=== PATIENT | female | born 1950 | race Hispanic/Latino ===

== ENCOUNTER → 2018-01-21 | Outpatient (CLI) | payer OTHER | END | disposition home or self-care (01) | LOC: RAH 14:56 | PROVIDERS: ATTEND Family Medicine | DX: R22.2 Localized swelling, mass and lump, trunk (principal) | CPT/HCPCS: 76604 ==

== ENCOUNTER 2019-07-21 17:09 | Emergency (ER) | payer OTHER ==
[~2019-07-21 17:09] MED LIST: ASPI-1197 PO; BACL10TA PO; ESOM20CA39 PO; LINA145C PO; METF-526 PO; SIMV10TA97 PO; TRAZ-185 PO
[2019-07-21 17:36] LABS: BASOPHILS % (AUTO) 1.1 % (0.0-5.0); EOSINOPHILS % (AUTO) 1.2 % (0.0-8.0); HEMATOCRIT 31.5 % (36-48); MEAN CORPUSCULAR HEMOGLOBIN 27.4 pg (27.0-33.0); MEAN CORPUSCULAR VOLUME 82.9 fL (79-99); MONOCYTES % (AUTO) 5.2 % (3.0-13.0); NEUTROPHILS % (AUTO) 48.1 % (40.0-77.0); PLATELET COUNT (AUTO) 409 K/uL (130-400); RED CELL DISTRIBUTION WIDTH 14.6 % (11.0-15.5); WHITE BLOOD COUNT (AUTO) 9.1 K/uL (4.8-10.8)
[2019-07-21] MEDS ORDERED: IOHEXOL 350 MG/ML 100ML INFUS..BTL IV ONE (17:56)
[2019-07-21] MEDS ORDERED: ONDANSETRON HCL 4 MG/2 ML VIAL ONE (18:02)
[2019-07-21] MEDS ORDERED: MORPHINE SULFATE 4 MG/1ML SYG ONE (18:03)
[2019-07-21 18:24] LABS: CARBON DIOXIDE 21 mmol/L (21-32); CHLORIDE 100 mmol/L (101-111); GLOMERULAR FILTR. RATE CALC 59 mL/min (>60); GLUCOSE,RANDOM 202 mg/dL (70-105); POTASSIUM 3.5 mmol/L (3.5-5.1); SODIUM SERUM 137 mmol/L (136-145); UREA NITROGEN, BLOOD 10 mg/dL (7-18)
[2019-07-21 18:28] LABS: ALANINE AMINOTRANSFERASE 15 U/L (12-78); ALBUMIN 3.7 g/dL (3.5-5.0); ALCOHOL, BLOOD < 3 mg/dL (0-10); ASPARTATE AMINOTRANSFERASE 10 U/L (10-37); BILIRUBIN,TOTAL 0.2 mg/dL (0.2-1.0); LIPASE 121 U/L (114-286); TOTAL PROTEIN, SERUM 8.2 g/dL (6.0-8.3)
[2019-07-21 19:03] LABS: APPEARANCE,URINE Clear (CLEAR); BILIRUBIN,URINE Negative (NEGATIVE); COLOR,URINE Yellow (YELLOW); GLUCOSE, URINE (UA) Negative (NEGATIVE); KETONES,URINE Negative (NEGATIVE); LEUKOCYTE ESTERASE ,URINE Negative (NEGATIVE); NITRATE,URINE Negative (NEGATIVE); OCCULT BLOOD,URINE Negative (NEGATIVE); PH,URINE 7.5 (5.0-8.0); PROTEIN,URINE Negative (NEGATIVE); UROBILINOGEN,URINE 0.2 mg/dL (0.2-1.0)
[2019-07-21 19:11] LABS: AMPHET/METH SCREEN,URINE NEGATIVE (NEGATIVE); BARBITURATE SCREEN, URINE NEGATIVE (NEGATIVE); BENZODIAZEPINES SCREEN,URINE NEGATIVE (NEGATIVE); CANNABINOID SCREEN,URINE NEGATIVE (NEGATIVE); COCAINE SCREEN,URINE NEGATIVE (NEGATIVE); OPIATE SCREEN,URINE NEGATIVE (NEGATIVE); PHENCYCLIDINE SCREEN,URINE NEGATIVE (NEGATIVE)
== END 2019-07-21 19:33 | disposition home or self-care (01) ==
LOC: EDH 17:09
DX: S30.1XXA Contusion of abdominal wall, initial encounter (principal); R07.89 Other chest pain; E11.9 Type 2 diabetes mellitus without complications; Z90.49 Acquired absence of other specified parts of digestive tract; Z90.710 Acquired absence of both cervix and uterus; V89.2XXA Person injured in unspecified motor-vehicle accident, traffic, initial encounter; Y93.89 Activity, other specified; Y92.488 Other paved roadways as the place of occurrence of the external cause; Y99.8 Other external cause status
CPT/HCPCS: 36415; 70450; 71260; 72125; 74177; 80053; 80305; 81003; 83690; 85025; 96374; 96375; 99285; G0480; J2270; J2405; Q9967

== ENCOUNTER → 2019-08-15 | Outpatient (CLI) | payer OTHER ==
[~2019-08-15] VITALS: Ht 139.7 cm; Wt 65.3 kg
[~2019-08-15] MED LIST changes: +REGADENOSON 0.4 MG/5 ML PF SYG IVP SCH
== END | disposition home or self-care (01) ==
LOC: SHCH 08:01
PROVIDERS: ATTEND Internal Medicine Cardiovascular Disease
DX: I25.10 Atherosclerotic heart disease of native coronary artery without angina pectoris (principal); E11.9 Type 2 diabetes mellitus without complications; Z90.710 Acquired absence of both cervix and uterus; Z90.49 Acquired absence of other specified parts of digestive tract
CPT/HCPCS: 78452; 93017; 96374; A9500 ×2; J2785

== ENCOUNTER 2019-09-25 20:14 | Observation (INO) | payer OTHER ==
[~2019-09-25] VITALS: Ht 139.7 cm; Wt 63.9 kg
[~2019-09-25 20:14] MED LIST changes: -REGADENOSON 0.4 MG/5 ML PF SYG IVP SCH
[2019-09-25] MEDS ORDERED: ASPIRIN 325 MG TABLET ONE (20:42)
[2019-09-25 21:06] LABS: BASOPHILS % (AUTO) 1.2 % (0.0-5.0); EOSINOPHILS % (AUTO) 2.4 % (0.0-8.0); HEMATOCRIT 30.6 % (36-48); LYMPHOCYTES % (AUTO) 39.6 % (21.0-51.0); MEAN CORPUSCULAR HEMOGLOBIN 27.4 pg (27.0-33.0); MEAN CORPUSCULAR HGB CONC 32.7 g/dL (32.0-36.0); MEAN CORPUSCULAR VOLUME 83.8 fL (79-99); MONOCYTES % (AUTO) 6.1 % (3.0-13.0); NEUTROPHILS % (AUTO) 50.5 % (40.0-77.0); PLATELET COUNT (AUTO) 391 K/uL (130-400); RED BLOOD CELL COUNT(AUTO) 3.65 MIL/uL (4.00-5.50); RED CELL DISTRIBUTION WIDTH 15.1 % (11.0-15.5); WHITE BLOOD COUNT (AUTO) 8.4 K/uL (4.8-10.8)
[2019-09-25 21:18] LABS: CREATININE 1.2 mg/dL (0.5-1.5); POTASSIUM 4.2 mmol/L (3.5-5.1)
[2019-09-25 21:23] LABS: ALBUMIN 3.7 g/dL (3.5-5.0); BILIRUBIN,TOTAL 0.2 mg/dL (0.2-1.0); INR 0.9 (0.85-1.15); PROTHROMBIN TIME 9.8 SEC (9.6-11.6); TOTAL PROTEIN, SERUM 7.2 g/dL (6.0-8.3)
[2019-09-26] VITALS (7 sets, daily range): BP systolic 114–124; BP diastolic 48–68
[2019-09-26 03:51] LABS: CREATINE KINASE, TOTAL 64 U/L (21-232); MYOGLOBIN 13 ng/mL (10-92); TROPONIN I < 0.04 ng/mL (0.00-0.06)
[2019-09-26] MEDS ORDERED: METOPROLOL TARTRATE 50 MG TAB ONE (08:34)
[2019-09-26] MEDS ORDERED: ASPIRIN 325 MG TABLET ONE (08:34)
[2019-09-26] MEDS ORDERED: PANTOPRAZOLE SODIUM 40 MG TABLET.DR ONE (08:34)
[2019-09-26] MEDS ORDERED: NITROGLYCERIN 1GM/1 INCH PACKET TD ONE (08:34)
[2019-09-26 09:26] LABS: CREATINE KINASE, TOTAL 61 U/L (21-232); MYOGLOBIN 26 ng/mL (10-92); TROPONIN I < 0.04 ng/mL (0.00-0.06)
[2019-09-26] MEDS ORDERED: BIVALIRUDIN 250 MG/VIAL IV ONE (13:28)
[2019-09-26] MEDS ORDERED: IOHEXOL 350 MG/ML 100ML INFUS..BTL IV ONE (13:28)
[2019-09-26] MEDS ORDERED: NITROGLYCERIN 2 MG/VIAL VIAL IV ONE (13:28)
[2019-09-26] MEDS ORDERED: LIDOCAINE HCL 2% 20ML ONE (13:28)
[2019-09-26] MEDS ORDERED: IOHEXOL-350 50ML VIAL IV ONE (13:28)
[2019-09-26] MEDS ORDERED: IOHEXOL-350 75 ML VIAL IV ONE (13:28)
[2019-09-26] MEDS ORDERED: MIDAZOLAM HCL 1 MG/ML 2ML VIAL ONE (14:27)
[2019-09-26] MEDS ORDERED: FENTANYL CITRATE PF 50 MCG/1 ML 2ML VIAL ONE (14:39)
[2019-09-26] MEDS ORDERED: SODIUM CHLORIDE 0.9% 1000ML 1,000 ML IV SCH (15:04)
--- NOTE | 2019-09-26 16:05 | NUR ---
CALL TO DTR FOR KIMMIE BOWER, DAUGHTER PROVIDED INFO ON PATIENT. FACE SHEET UPDATED. PT LIVES WITH PARTNER PAT [facility], WHO WILL PROVIDE TRANSPORT ON DISCHARGE. PATIENT IS ACTIVE, INDEPENDENT, DRIVES, IS EMPLOYED, NO SERVICES OR DME, S/P [facility] TODAY WITH DISCHARGE EXPECTED. DCP HOME Addendum: 09/26/19 at 1610 by JEFF JUSTIN RN CM Amended: Links added.
[2019-09-26] MEDS ORDERED: METO-408 PO (17:25)
[2019-09-26] MEDS ORDERED: ROSU20TA31 PO (17:25)
[2019-09-26] MEDS ORDERED: PANT40TA25 PO (17:25)
--- NOTE | 2019-09-26 19:51 | NUR ---
Patient AOX3, stable, good, ambulatory. LHC- Right groin intact no bleeding noted. Removed IV/Telepack. Discharge instructions provided and work excuse. Patient taken to lobby via wheel chair by Sruthi PCP. No issues noted.,
== END 2019-09-26 20:00 | disposition home or self-care (01) ==
LOC: EDH 20:14 → INTOOBSV 23:03 → EDHIP 23:03 → 4CH 09-26 16:07
PROVIDERS: ADMIT Family Medicine; ATTEND Family Medicine
DX: R07.89 Other chest pain (principal); I25.10 Atherosclerotic heart disease of native coronary artery without angina pectoris; K21.9 Gastro-esophageal reflux disease without esophagitis; E78.5 Hyperlipidemia, unspecified; E11.9 Type 2 diabetes mellitus without complications; G25.81 Restless legs syndrome; K57.90 Diverticulosis of intestine, part unspecified, without perforation or abscess without bleeding; Z90.710 Acquired absence of both cervix and uterus; Z79.899 Other long term (current) drug therapy; Z79.82 Long term (current) use of aspirin
CPT/HCPCS: 36415 ×2; 71045; 80053; 82550 ×3; 82948 ×2; 83874 ×2; 84484 ×3; 85025; 85610; 85730; 93005; 93458; 99285; C1760; C1894 ×2; G0378 ×2; J1644; J2250; J3010; J3490 ×2; Q9965; Q9967 ×2; 99156; 99157; J0583

== ENCOUNTER 2022-07-01 17:00 | Emergency (ER) | payer OTHER ==
[~2022-07-01] VITALS: Ht 139.7 cm; Wt 60.8 kg
[~2022-07-01 17:00] MED LIST changes: -ESOM20CA39 PO; +METO-408 PO; +PANT40TA54 PO; +ROSU20TA31 PO; -SIMV10TA97 PO
[2022-07-01 17:45] LABS: BASOPHILS % (AUTO) 1.3 % (0.0-5.0); HEMATOCRIT 34.2 % (36-48); MEAN CORPUSCULAR HEMOGLOBIN 27.9 pg (27.0-33.0); MEAN CORPUSCULAR HGB CONC 32.7 g/dL (32.0-36.0); MEAN CORPUSCULAR VOLUME 85.1 fL (79-99); NEUTROPHILS % (AUTO) 41.4 % (40.0-77.0); PLATELET COUNT (AUTO) 385 K/uL (130-400); RED BLOOD CELL COUNT(AUTO) 4.02 MIL/uL (4.00-5.50); RED CELL DISTRIBUTION WIDTH 14.7 % (11.0-15.5); WHITE BLOOD COUNT (AUTO) 7.8 K/uL (4.8-10.8)
[2022-07-01 17:57] LABS: CREATININE 0.8 mg/dL (0.5-1.5); POTASSIUM 3.4 mmol/L (3.5-5.1)
[2022-07-01 17:58] LABS: INR 0.93 (0.85-1.15); PROTHROMBIN TIME 9.8 SEC (9.6-11.6)
[2022-07-01 17:59] LABS: PARTIAL THROMBOPLASTIN TIME 25.4 SEC (26.3-35.5)
[2022-07-01 18:00] LABS: APPEARANCE,URINE CLEAR (CLEAR); BILIRUBIN,URINE NEGATIVE (NEGATIVE); COLOR,URINE COLORLESS (YELLOW); GLUCOSE, URINE (UA) NEGATIVE (NEGATIVE); KETONES,URINE NEGATIVE (NEGATIVE); LEUKOCYTE ESTERASE ,URINE 25 Leu/uL (NEGATIVE); NITRATE,URINE NEGATIVE (NEGATIVE); OCCULT BLOOD,URINE NEGATIVE (NEGATIVE); PH,URINE 5.5 (5.0-8.0); PROTEIN,URINE NEGATIVE (NEGATIVE); UROBILINOGEN,URINE 0.2 mg/dL (0.2-1.0)
[2022-07-01 18:02] LABS: ALBUMIN 4.1 g/dL (3.5-5.0); TOTAL PROTEIN, SERUM 8.2 g/dL (6.0-8.3)
[2022-07-01 18:06] LABS: BACTERIA,URINE RARE /HPF (None Seen); MUCUS,URINE RARE LPF (None Seen); SQUAMOUS EPITHELIAL CELL,UR RARE /HPF (0-2)
[2022-07-01] MEDS ORDERED: IOHEXOL-350 50ML VIAL IV ONE (18:46)
[2022-07-01 21:17] VITALS: BP 158/72
[2022-07-01] MEDS ORDERED: HYOS-14 PO (21:21)
[2022-07-01] MEDS ORDERED: SUCR1TAB28 PO (21:21)
== END 2022-07-01 22:17 | disposition home or self-care (01) ==
LOC: EDH 17:00
DX: R10.84 Generalized abdominal pain (principal); D64.9 Anemia, unspecified; E11.9 Type 2 diabetes mellitus without complications; E78.00 Pure hypercholesterolemia, unspecified; K21.9 Gastro-esophageal reflux disease without esophagitis; K57.30 Diverticulosis of large intestine without perforation or abscess without bleeding; Z79.82 Long term (current) use of aspirin; Z79.84 Long term (current) use of oral hypoglycemic drugs; Z79.899 Other long term (current) drug therapy; Z90.49 Acquired absence of other specified parts of digestive tract
CPT/HCPCS: 99285; 74177; 82270; 84484; 80053; 83690; 85025; 85610; 85730; 81001; 36415; 93005; Q9967

== ENCOUNTER 2022-12-21 12:42 | Emergency (ER) | payer OTHER ==
[~2022-12-21] VITALS: Ht 139.7 cm; Wt 57.2 kg
[~2022-12-21 12:42] MED LIST changes: +AMOX1TAB15 PO; +HYOS-14 PO; +METFORMIN/GLYBURIDE PO; +PANT40TA55 PO; -ROSU20TA31 PO; +ROSU20TA73 PO; +SUCR1TAB28 PO
[2022-12-21 13:48] LABS: BASOPHILS # (AUTO) 0.09 K/uL (0.00-0.20); BASOPHILS % (AUTO) 0.8 % (0.0-5.0); EOSINOPHILS # (AUTO) 0.11 K/uL (0.00-0.70); HEMATOCRIT 32.5 % (36-48); IMMATURE GRANULOCYTE ABSOLUTE 0.05 K/uL (0-1); LYMPHOCYTES # (AUTO) 2.8 K/uL (1.0-4.8); LYMPHOCYTES % (AUTO) 26.2 % (21.0-51.0); MEAN CORPUSCULAR HEMOGLOBIN 27.8 pg (27.0-33.0); MEAN CORPUSCULAR HGB CONC 32.9 g/dL (32.0-36.0); MEAN CORPUSCULAR VOLUME 84.4 fL (79-99); MONOCYTES # (AUTO) 0.6 K/uL (0.1-1.0); MONOCYTES % (AUTO) 5.7 % (3.0-13.0); NEUTROPHILS % (AUTO) 65.8 % (40.0-77.0); PLATELET COUNT (AUTO) 438 K/uL (130-400); RED BLOOD CELL COUNT(AUTO) 3.85 MIL/uL (4.00-5.50); RED CELL DISTRIBUTION WIDTH 14.2 % (11.0-15.5); WHITE BLOOD COUNT (AUTO) 10.7 K/uL (4.8-10.8)
[2022-12-21 14:53] LABS: CREATININE 0.7 mg/dL (0.5-1.5)
[2022-12-21 14:58] LABS: ALBUMIN 3.6 g/dL (3.5-5.0); BILIRUBIN,TOTAL 0.2 mg/dL (0.2-1.0); TOTAL PROTEIN, SERUM 7.9 g/dL (6.0-8.3)
[2022-12-21 15:27] LABS: APPEARANCE,URINE CLEAR (CLEAR); BILIRUBIN,URINE NEGATIVE (NEGATIVE); COLOR,URINE LIGHT-YELLOW (YELLOW); GLUCOSE, URINE (UA) NEGATIVE (NEGATIVE); KETONES,URINE NEGATIVE (NEGATIVE); LEUKOCYTE ESTERASE ,URINE NEGATIVE Leu/uL (NEGATIVE); NITRATE,URINE NEGATIVE (NEGATIVE); OCCULT BLOOD,URINE NEGATIVE (NEGATIVE); PH,URINE 5.5 (5.0-8.0); PROTEIN,URINE NEGATIVE (NEGATIVE); UROBILINOGEN,URINE 0.2 mg/dL (0.2-1.0)
[2022-12-21 15:30] LABS: ADD UA MICROSCOPIC YES
[2022-12-21 15:32] LABS: BACTERIA,URINE RARE /HPF (None Seen); MUCUS,URINE RARE LPF (None Seen); RBC,URINE 0-1 /HPF (0-1); SQUAMOUS EPITHELIAL CELL,UR RARE /HPF (0-2)
[2022-12-21] MEDS ORDERED: CIPR-278 PO (15:59)
[2022-12-21] MEDS ORDERED: METR-172 PO (15:59)
[2022-12-21 16:38] VITALS: BP 134/81; PULSE 78; RESP 18; O2SAT 97
== END 2022-12-21 16:39 | disposition home or self-care (01) ==
LOC: EDH 12:42
DX: K57.30 Diverticulosis of large intestine without perforation or abscess without bleeding (principal); E11.9 Type 2 diabetes mellitus without complications; I10 Essential (primary) hypertension; Z79.82 Long term (current) use of aspirin; Z79.84 Long term (current) use of oral hypoglycemic drugs; Z79.899 Other long term (current) drug therapy; Z90.49 Acquired absence of other specified parts of digestive tract
CPT/HCPCS: 36415; 74176; 80053; 81001; 83690; 84484; 85025; 93005

== ENCOUNTER → 2023-02-16 | Outpatient (CLI) | payer OTHER ==
[~2023-02-16] MED LIST changes: +CIPR-278 PO; +METR-172 PO
== END | disposition home or self-care (01) ==
LOC: OIH 15:47
PROVIDERS: ATTEND Family Medicine
DX: M47.814 Spondylosis without myelopathy or radiculopathy, thoracic region (principal); R07.82 Intercostal pain; Z90.49 Acquired absence of other specified parts of digestive tract
CPT/HCPCS: 71101

== ENCOUNTER 2023-03-02 12:02 | Emergency (ER) | payer OTHER ==
[~2023-03-02] VITALS: Ht 139.7 cm; Wt 56.7 kg
[2023-03-02 14:27] LABS: APPEARANCE,URINE CLOUDY (CLEAR); BILIRUBIN,URINE NEGATIVE (NEGATIVE); COLOR,URINE LIGHT-YELLOW (YELLOW); GLUCOSE, URINE (UA) NEGATIVE (NEGATIVE); KETONES,URINE NEGATIVE (NEGATIVE); LEUKOCYTE ESTERASE ,URINE 500 Leu/uL (NEGATIVE); NITRATE,URINE NEGATIVE (NEGATIVE); OCCULT BLOOD,URINE NEGATIVE (NEGATIVE); PH,URINE 5.5 (5.0-8.0); PROTEIN,URINE NEGATIVE (NEGATIVE); UROBILINOGEN,URINE 0.2 mg/dL (0.2-1.0)
[2023-03-02 14:30] LABS: BASOPHILS % (AUTO) 1.2 % (0.0-5.0); EOSINOPHILS # (AUTO) 0.11 K/uL (0.00-0.70); EOSINOPHILS % (AUTO) 1.3 % (0.0-8.0); HEMATOCRIT 32.5 % (36-48); IMMATURE GRANULOCYTE ABSOLUTE 0.02 K/uL (0-1); LYMPHOCYTES # (AUTO) 3.1 K/uL (1.0-4.8); LYMPHOCYTES % (AUTO) 36.2 % (21.0-51.0); MEAN CORPUSCULAR HEMOGLOBIN 27.5 pg (27.0-33.0); MEAN CORPUSCULAR HGB CONC 31.7 g/dL (32.0-36.0); MEAN CORPUSCULAR VOLUME 86.9 fL (79-99); MONOCYTES # (AUTO) 0.5 K/uL (0.1-1.0); MONOCYTES % (AUTO) 6.3 % (3.0-13.0); NEUTROPHILS # (AUTO) 4.6 K/uL (1.8-7.7); NEUTROPHILS % (AUTO) 54.8 % (40.0-77.0); PLATELET COUNT (AUTO) 435 K/uL (130-400); RED BLOOD CELL COUNT(AUTO) 3.74 MIL/uL (4.00-5.50); RED CELL DISTRIBUTION WIDTH 14.2 % (11.0-15.5); WHITE BLOOD COUNT (AUTO) 8.5 K/uL (4.8-10.8)
[2023-03-02 14:32] LABS: ADD UA MICROSCOPIC YES
[2023-03-02 14:34] LABS: BACTERIA,URINE MOD /HPF (None Seen); MUCUS,URINE FEW LPF (None Seen); SQUAMOUS EPITHELIAL CELL,UR FEW /HPF (0-2); WBC,URINE TNTC /HPF (0-1)
[2023-03-02 14:38] LABS: CREATININE 0.6 mg/dL (0.5-1.5); POTASSIUM 4.2 mmol/L (3.5-5.1)
[2023-03-02 14:43] LABS: ALBUMIN 3.9 g/dL (3.5-5.0); BILIRUBIN,TOTAL 0.2 mg/dL (0.2-1.0); TOTAL PROTEIN, SERUM 8.2 g/dL (6.0-8.3)
[2023-03-02 15:12] VITALS: BP 148/75; PULSE 88; RESP 16; O2SAT 98
[2023-03-02] MEDS ORDERED: CEFTRIAXONE 1G VIAL IVPB ONE (16:00)
[2023-03-02] MEDS ORDERED: CEPH500B PO (16:06)
== END 2023-03-02 16:30 | disposition home or self-care (01) ==
LOC: EDH 12:02
DX: N39.0 Urinary tract infection, site not specified (principal); N93.9 Abnormal uterine and vaginal bleeding, unspecified; E11.9 Type 2 diabetes mellitus without complications; Z79.82 Long term (current) use of aspirin; Z79.84 Long term (current) use of oral hypoglycemic drugs; Z79.899 Other long term (current) drug therapy; Z90.49 Acquired absence of other specified parts of digestive tract; Z90.710 Acquired absence of both cervix and uterus
CPT/HCPCS: 99285; 96365; 76857; 80053; 85025; 87088; 81001; 36415; J0696

== ENCOUNTER → 2023-03-11 | Outpatient (CLI) | payer OTHER ==
[~2023-03-11] MED LIST changes: +CEPH500B PO; +IOHEXOL-350 50ML VIAL IV ONE
== END | disposition home or self-care (01) ==
LOC: RAH 08:39
PROVIDERS: ATTEND Family Medicine
DX: R82.90 Unspecified abnormal findings in urine (principal); N95.0 Postmenopausal bleeding; Z90.710 Acquired absence of both cervix and uterus
CPT/HCPCS: 76080; Q9967

== ENCOUNTER 2023-05-14 18:40 | Emergency (ER) | payer OTHER ==
[~2023-05-14] VITALS: Ht 139.7 cm; Wt 58.1 kg
[~2023-05-14 18:40] MED LIST changes: -IOHEXOL-350 50ML VIAL IV ONE
[2023-05-14 23:23] VITALS: BP 144/72; PULSE 80; RESP 16; O2SAT 99
== END 2023-05-14 23:24 | disposition home or self-care (01) ==
LOC: EDH 18:40
DX: N82.3 Fistula of vagina to large intestine (principal); E11.9 Type 2 diabetes mellitus without complications; Z79.82 Long term (current) use of aspirin; Z79.84 Long term (current) use of oral hypoglycemic drugs; Z79.899 Other long term (current) drug therapy; Z90.49 Acquired absence of other specified parts of digestive tract; Z90.710 Acquired absence of both cervix and uterus
CPT/HCPCS: 99281

== ENCOUNTER → 2023-05-21 | Outpatient (CLI) | payer OTHER ==
[~2023-05-21] MED LIST changes: +IOHEXOL-350 75 ML VIAL IV ONE
== END | disposition home or self-care (01) ==
LOC: RAH 08:54
PROVIDERS: ATTEND Internal Medicine Gastroenterology
DX: K57.30 Diverticulosis of large intestine without perforation or abscess without bleeding (principal); N82.3 Fistula of vagina to large intestine; Z90.49 Acquired absence of other specified parts of digestive tract
CPT/HCPCS: 74178; Q9967

== ENCOUNTER → 2023-12-06 | Outpatient (CLI) | payer OTHER ==
[~2023-12-06] MED LIST changes: +ALEN70TA80 PO; -AMOX1TAB15 PO; -ASPI-1197 PO; -CEPH500B PO; +CETI-89 PO; -CIPR-278 PO; -HYOS-14 PO; -IOHEXOL-350 75 ML VIAL IV ONE; -LINA145C PO; +METF-444 PO; -METF-526 PO; -METFORMIN/GLYBURIDE PO; -METO-408 PO; -METR-172 PO; -PANT40TA54 PO; +ROSU10TA22 PO; -ROSU20TA73 PO; -SUCR1TAB28 PO; -TRAZ-185 PO; +TRAZ-187 PO
== END | disposition home or self-care (01) ==
LOC: RAH 12:12
PROVIDERS: ATTEND Family Medicine
DX: M19.071 Primary osteoarthritis, right ankle and foot (principal); M79.674 Pain in right toe(s)
CPT/HCPCS: 73660

== ENCOUNTER → 2024-02-14 | Outpatient (CLI) | payer OTHER | END | disposition home or self-care (01) | LOC: RAH 16:41 | PROVIDERS: ATTEND Family Medicine | DX: R05.1 Acute cough (principal); M47.815 Spondylosis without myelopathy or radiculopathy, thoracolumbar region; R06.02 Shortness of breath | CPT/HCPCS: 71046 ==

== ENCOUNTER → 2024-02-24 | Outpatient (CLI) | payer OTHER | END | disposition home or self-care (01) | LOC: RAH 13:59 | PROVIDERS: ATTEND Family Medicine | DX: R13.10 Dysphagia, unspecified (principal) | CPT/HCPCS: 74230; 92611 ==

== ENCOUNTER → 2024-04-25 | Outpatient (CLI) | payer OTHER ==
--- NOTE | 2024-04-25 16:34 | HMCIMG ---
CHEST 2VWS HISTORY: Cough COMPARISON: 02/14/2024 FINDINGS: Frontal and lateral projections of the chest were obtained. There is no acute pulmonary infiltrates or failure. The heart is not enlarged. Prominent interstitial markings are seen. Aortic calcifications are seen. Degenerative changes are seen of the thoracolumbar spine. IMPRESSION: 1. No acute pulmonary infiltrates.
== END | disposition home or self-care (01) ==
LOC: RAH 10:00 → EDSTATUS 16:01
PROVIDERS: ATTEND Family Medicine
DX: R05.9 Cough, unspecified (principal); I70.0 Atherosclerosis of aorta; M47.815 Spondylosis without myelopathy or radiculopathy, thoracolumbar region
CPT/HCPCS: 71046

== ENCOUNTER → 2024-11-07 | Outpatient (CLI) | payer OTHER | END | disposition home or self-care (01) | LOC: RAH 10:33 | PROVIDERS: ATTEND Family Medicine | DX: Z12.31 Encounter for screening mammogram for malignant neoplasm of breast (principal) | CPT/HCPCS: 77067 ==

== ENCOUNTER → 2025-03-27 | Outpatient (CLI) | payer OTHER ==
--- NOTE | 2025-03-28 08:14 | HMCIMG ---
Left BREAST ULTRASOUND: Clinical history: Left breast lump. Patient has prior mammogram from 11/07/2024. Finding: Real-time examination of the [right/left] breast demonstrates heterogeneous echotexture throughout the breast without evidence of focal solid or cystic masses. There is benign-appearing left axillary lymph node measuring 2.6 x 0.8 x 1.9 cm. IMPRESSION: Dense breasts with no solid or cystic masses seen.. FINAL ASSESSMENT: ACR: BI-RAD- 2. Benign Finding.
--- NOTE | 2025-03-28 08:16 | HMCIMG ---
DIGITAL bilateral DIAGNOSTIC MAMMOGRAM Technique: The digital mammographic examination of both breasts in craniocaudal, mediolateral oblique views along with CAD was obtained. Left breast sonogram was obtained. History: This is a 75 years year-old female 2, para2 Ab0. Patient has had left breast biopsy 20 years ago which was benign. Patient has sister with family history of breast cancer. Patient complaining of lump in the left breast. Reference:Prior mammogram from 11/07/2024 is available.. Breast composition: Breast composition C: The breasts are heterogeneously dense, which may obscure small masses. Finding: The digital mammographic examination of both breasts in craniocaudal and mediolateral oblique view along with CAD demonstrates moderately heterogeneously dense due to fibroglandular stromal elements.. Left breast sonogram demonstrate no lesion seen. There is benign vascular calcification suggesting of atherosclerotic changes. There is no evidence of any dendritic mass, cluster microcalcification or architectural distortion. The retromammary fat appears to be normal. IMPRESSION: Unchanged from prior mammography. NO RADIOGRAPHIC EVIDENCE OF MALIGNANT CHANGES. WE WOULD RECOMMEND ANNUAL FOLLOW UP WITH TOMOSYNTHESIS UNLESS OTHERWISE CLINICALLY INDICATED. FINAL ASSESSMENT: ACR: BI-RAD- 2. Benign Finding. NOTE: IF A WORK-UP OF THIS PATIENT LEADS TO A BIOPSY, PLEASE FORWARD A COPY OF THE PATHOLOGY REPORT TO OUR OFFICE REQUIRED BY [facility]ECT[facility] FEBRUARY 07, 1994. A NEGATIVE MAMMOGRAM SHOULD NOT PRECLUDE BIOPSY OF A CLINICALLY PALPABLE SUSPICIOUS MASS, 10% OF BREAST CANCERS ARE MAMMOGRAPHICALLY OCCULT. THIS MAMMOGRAPHY FACILITY IS FULLY ACCREDITED BY THE [employer]OD AND DRUG [employer]MIN[employer]RATION (FDA). THANK YOU FOR THIS REFERRAL.
== END | disposition home or self-care (01) ==
LOC: RAH 13:28
PROVIDERS: ATTEND Family Medicine
DX: R92.333 Mammographic heterogeneous density, bilateral breasts (principal); I70.8 Atherosclerosis of other arteries; N63.20 Unspecified lump in the left breast, unspecified quadrant
CPT/HCPCS: 76641; 77066